=== PATIENT | male | born 1950 | race Caucasian/White ===

== ENCOUNTER → 2025-06-13 08:12 | Outpatient (BNVA) | payer MEDICARE, SELFPAY | PROVIDERS: PCP Nurse Practitioner Family; Referring Provider Nurse Practitioner Family; Visit Provider Physical Therapy Assistant | DX: Z12.11 Encounter for screening for malignant neoplasm of colon (principal); I10 Essential (primary) hypertension | CPT/HCPCS: S0285 ==

== ENCOUNTER 2025-06-21 03:45 | Outpatient (CLI) | payer MEDICARE, SELFPAY ==
--- NOTE | 2025-06-21 05:30 | DI.US_ITS ---
APPROVED REPORT EXAM: Comprehensive 2D, Doppler, and color-flow Echocardiogram Patient Location: Out-Patient Material Handling Crew Supervisor: Lisa Alvares RDCS (AE) Indications: H/O Aortic stenosis Other Information Study Quality: Adequate. Technically limited study due to body habitus limited view of subcoastal . Conclusion Normal left ventricular wall thickness and chamber size. Ejection fraction is 60%. Wall motion is normal Normal right ventricular size and function Both atria are normal in size. The atrial septum is thin and hypermobile Aortic valve is calcified. There is moderate aortic stenosis. Peak gradient is 44, mean 27 mmHg. Calculated aortic valve area is 1 to 1.2 cm??. Trace aortic regurgitation Mildly dilated ascending aorta 3.5 cm Wall motion Left Ventricle The left ventricle is normal size. The left ventricular systolic function is normal. The left ventricular ejection fraction is within the normal range. There is normal left ventricular wall thickness. There is normal LV segmental wall motion. There is no ventricular septal defect visualized. LVEF is 60%. Right Ventricle The right ventricle is normal size. The right ventricular systolic function is normal. Atria The left atrium size is normal. The right atrium size is normal. Atrial septal aneurysm is present. Aortic Valve Aortic valve is calcified. Number of aortic valve leaflets could not be assessed. Moderate aortic stenosis. Highest mean aortic valve gradient is 27.07mmHg. Peak aortic valve gradient is 44.04mmHg. Calculated GRABIEL by the continuity equation is 1.0cm2. Trace aortic regurgitation. Mitral Valve Mild mitral annular calcification. No evidence of mitral valve stenosis. Trace mitral regurgitation. Tricuspid Valve The tricuspid valve is normal in structure. There is no tricuspid valve stenosis. Trace to mild tricuspid regurgitation. Pulmonic Valve The pulmonary valve is normal in structure. There is no pulmonic valvular stenosis. There is no pulmonic valvular regurgitation. Great Vessels The aortic root is normal in size. The ascending aorta is mildly dilated. Aortic arch is normal in caliber. The IVC was not visualized. Technically limited subcostal imaging. Pericardium Technically limited subcostal imaging. 2D Dimensions IVSD d PLAX 1.20 cm M: 0.6-1.2 Ao Root d 2.91 cm M: 3.1 - 3.7 LVPW d PLAX 1.20 cm M: 0.6 - 1.2 Ao Asc Diam d 3.50 cm M: 2.6 - 3.4 LVID d PLAX 4.73 cm M: 4.2 - 5.8 LVDs 3.20 cm M: 2.5 - 4.0 LV EF Teichholz 60.7 % FS 32.41 % LV EDV (Teich) 104.0 mL LV ESV (Teich) 40.9 mL M-Mode TAPSE 2.90 cm (M/F) >1.7 Auto EF LV EDV A4C 128.3 mL LV EDV A2C 153.4 mL LV EDV BP 139.7 mL LV ESV A4C 52.6 mL LV ESV A2C 59.6 mL LV ESV BP 56.3 mL LVEF(%) A4C 59.0 % LVEF(%) A2C 61.1 % LVEF(%) BP 59.7 % LV SV A4C 75.6 ml LV SV A2C 93.8 ml LV SV BP 83.5 ml LV CO A4C 4.4 L/min LV CO A2C 5.4 L/min LV CO BP 4.9 L/min HR A4C 57.88 BPM HR A2C 57.15 BPM LV EDV Index (BP) LA Volume LA Length A4C 5.3 cm LA Length A2C 5.3 cm LA Area A4C s 19.87 cm2 LA Area A2C s 19.62 cm2 LA Vol A4C A-L 62.76 mL LA Vol A2C A-L 61.59 mL LA Vol Biplane A-L 62.4 mL LA Vol/BSA A4C A-L LA Vol/BSA A2C A-L LA Vol/BSA BP A-L 28.9 mL/m2 LA Vol A4C MOD 59.3 mL LA Vol A2C MOD 55.9 mL LA Vol BP MOD 57.6 mL RA Volume RA Area A4C 12.8 cm2 RA ESV A4C (A-L) 27.2mL RA Vol/BSA A4C A-L RA Length A4C 5.1 cm RA ESV A4C (MOD) 25.2mL LV Diastology MV E' medial 0.067 (>0.07 m/s) MV E Vmax 0.96 (0.4-1.3 m/s) MV E/E' MED 14.41 (<14) MV A Vmax 0.80 (0.4-1.3 m/s) MV E' lateral 0.077 (>0.1 m/s) E/A Ratio 1.2 MV E/E' LAT 12.57 (<14) MV E' Average 0.072 m/s MV E/E'(average) 13.43 Aortic Valve AoV Vmax 3.32 m/s LVOT Vmax 0.89 m/s AoV Peak Grad 44.0 mmHg LVOT Peak Grad 3.2 mmHg AoV Area (Vmax) 1.04 cm2 LVOT VTI 0.255 m AoV VTI 0.859 m LVOT Mean Grad 2.0 mmHg AoV Mean Gabino. 2.48 m/s LVOT SV 98.79 mL AoV Mean Grad 27.1 mmHg LVOT Diam s 2.20 cm AoV Area (VTI) 1.15 cm2 AV Regurg Peak Gr. 44.04 mmHg Velocity Ratio 0.27 Mitral Valve MV DT 149 (160-240 msec) MV Vmax TIPS 0.86 m/s MV Mean Grad 1.2 (<2mmHg) MV VTI 0.249 m Pulmonary Valve PV Vmax 1.00 (0.5-1.5 m/s) RVOT Vmax 0.74 m/s PV Peak Grad 4.0 mmHg RVOT Peak Gr. 2.2 mmHg PV Mean Gabino 0.70 m/s RVOT VTI 0.196 m PV Mean Grad 2.2 mmHg RVOT Mean Gr. 1.4 mmHg Tricuspid Valve TV S' 0.17 m/s TR Vmax 2.60 m/s TR Peak Grad 27.1 mmHg
== END 2025-06-21 04:05 ==
LOC: DI 03:45
PROVIDERS: PCP Nurse Practitioner Family; Visit Provider Internal Medicine Cardiovascular Disease
DX: I35.0 Nonrheumatic aortic (valve) stenosis (principal); Z12.11 Encounter for screening for malignant neoplasm of colon
CPT/HCPCS: 93306

== ENCOUNTER 2025-06-28 09:07 | Day surgery (SDC) | payer MEDICARE, SELFPAY ==
--- NOTE | 2025-06-27 18:26 | W.PM.DSUDISC ---
Date of service: 06/28/25 Discharge Plan Disposition Patient Disposition: Home Condition: Good Discharge Details Reason For Visit: screening colonoscopy Attending Provider: Diego Marin Primary Care Provider: Stewart Jaramillo Home Meds and New Rx's Prescriptions: Continued azathioprine [Imuran] 50 MG tablet 150 mg PO DAILY calcium carbonate-vitamin D3 1 EACH tablet 1 ea PO BID sulfamethoxazole-trimethoprim [Bactrim DS] 1 EACH tablet 1 ea PO 3x/wk Rx Instructions: Take M,W,F simvastatin 40 MG tablet 40 mg PO DAILY niacinamide 500 mg capsule 500 mg PO BID multivitamin Tablet 1 tab PO DAILY Discontinued bisacodyl [Dulcolax (bisacodyl)] 5 mg tablet,delayed release (DR/EC) 5 mg PO ONCE Qty: 4 0RF Rx Instructions: Take per colonoscopy instructions provided by ordering providers office polyethylene glycol 3350 17 gram/dose powder 17 g PO ONCE Qty: 238 0RF Rx Instructions: Take per colonoscopy instructions provided by ordering providers office Discharge Instructions Additional Instructions: Abe, it was nice to meet you today, and I hope you feel well after the procedure. Things went smoothly. I did find, and removed, total of 5 polyps today. These are all small, none of them have any features that are particularly worrisome to the naked eye. I will send all of these to the pathologist today for them to review. Colon polyps, different varieties, and we use the information from the polyp analysis to help guide the timing of future colonoscopies. The results from the pathologist will take a week or 2 for me to get back, but my office will be in touch once we have all that information. If you need anything at all in the meantime, please do not hesitate to ask at any point. Surgery: 1. If tolerated, consume a soft, low fiber diet for 1-2 days. 2[address] Do not drive, drink alcohol, operate machinery, make critical decisions, or do activities that require coordination or balance for 24 hours. 3. Because air was put into your colon during the procedure, expelling air from your rectum (passing gas or farting) is normal. 4. You may not have a bowel movement for 1-3 days because of the colonoscopy prep. This is normal. 5. Go directly to the emergency room if you notice any of the following: Develop chills (warm to touch), or if you have a thermometer and your temperature is above 101 Difficulty breathing or difficultly swallowing Persistent vomiting Severe abdominal pain, other than gas cramps Severe chest pain Black, tarry stools Any bleeding ? exceeding one tablespoon 6. Call your physician if the site where your intravenous was started becomes red, swollen, painful, and warm to touch. 7. Your physician has reviewed your pre-procedure medications. Please continue to take those medications as previously ordered. You will be given specific information/education regarding any changes to your medications before leaving. Anesthesia: Please call your primary care provider to arrange visit with cardiology to discuss your moderate/severe aortic valve stenosis and make sure your medical management has been optimized. Stand Alone Forms: Anesthesia Discharge Inst., Romel Burciaga ([facility]) Referrals: Dewayne Jaramillo [ NON-[facility] STAFF PHYSICIAN, Medicine] Referral Note: We repeated Aj's echocardiogram and planning for his colonoscopy. We have some concerns regarding progression of his aortic stenosis. The official report describes moderate stenosis, but by some measurements, this could be considered severe Activity:: Activity as Tolerated Diet:: As Tolerated Discharge Orders Discharge Orders: Discharge Order (Routine); Ordered 06/27/25 Ordered By: Diego Marin DS: Diagnosis Discharge Diagnosis (1) Colon cancer screening: Status: Acute Asessment and Plan: Follow-up on polypectomy results
--- NOTE | 2025-06-27 18:27 | W.COLOREPORT ---
Date of service: 06/28/25 Time of Service: 11:12 Colonoscopy Report Date of procedure: 06/28/25 Pre-op diagnosis general: screening colonoscopy Post-op diagnosis procedure note: other (Colon polyps; internal hemorrhoids) Procedure: colonoscopy with polypectomy Surgeon: Diego Marin Anesthesia Type: General:No Airway Estimated blood loss (mL): 10 Pathology: other (0.25 cm flat rectal polyps x 2 (single specimen) 0.25 cm flat polyp at 40 cm, 0.5 cm flat polyp at 35 cm, 0.25 cm flat polyp at 15 cm) Complications: None Disposition: same day Indications: Aj is a 75 year old man who needs his next screening colonoscopy Prep: Miralax/Dulcolax Procedure Start Time: 10:30 Procedure End Time: 10:54 Retraction Time: 17 Findings: Grade 1 internal hemorrhoids; 0.25 cm flat rectal polyps x 2 (single specimen) 0.25 cm flat polyp at 40 cm, 0.5 cm flat polyp at 35 cm, 0.25 cm flat polyp at 15 cm Procedure Description: After the induction of anesthesia, and with the patient in left lateral decubitus position, I began by performing an external anorectal exam.? Perineum and skin were normal, as was the anal verge.? There was no evidence of external hemorrhoids.? Next, I performed a digital rectal exam.? I did not appreciate any abnormal findings.? Next, I advanced a colonoscope into the rectal vault.? I performed retroflexion.? There are internal hemorrhoids.? In the bottom portion of the rectal vault large to 0.25 cm flat polyps. These were removed with cold forceps with minimal bleeding and sent as a single specimen. Using irrigation, I then advanced the colonoscope beyond the rectal folds and into the sigmoid colon before advancing towards the cecum.? The scope was noted to be in the cecum by identification of the ileocecal valve and appendiceal orifice.? I then began withdrawing the colonoscope using repeated irrigation as necessary for full evaluation of the colonic mucosa. Around 40 cm from the anal verge was another polyp. This was also flat. This was about 0.25 cm. I removed this with cold forceps. Similarly, another 0.5 cm flat polyp was detected at 35 cm. This was completely excised in piecemeal with cold forceps with minimal bleeding. ?Once the scope was withdrawn to the level of the rectum, great care was taken to examine portions of the rectal folds.? Another 0.25 cm flat polyp was found at 15 cm past the anal verge. This was removed with cold forceps similar to all the others. There was no significant bleeding from the sites. Finally, the scope was withdrawn and the patient was brought to the same-day surgery recovery unit as the anesthetic wore off. ?The findings and instructions were shared with the patient prior to discharge. Hardaway Bowel Prep Hardaway Bowel Prep Right Colon: 3 Left Colon: 3 Transverse Colon: 3 Total Score: 9
[2025-06-28 09:19] VITALS: BP 152/87; PULSE 87; RESP 14; TEMP 36.2; O2SAT 99
[2025-06-28] MEDS: Lactated Ringers 1,000 ML 80 ML IV (09:36)
--- NOTE | 2025-06-28 09:42 | W.ANESPRE ---
General Info Date of Service Date Performed: 06/28/25 Height: 6 ft Weight: 93.8 kg Body Mass Index (BMI): 28.0 Surgical Procedure: Operation Date: 06/28/25 10:35 Proposed Procedure Side Surgeon p Colonoscopy Diego Marin MD Meds Allergies and Home Medications Allergies Allergy/AdvReac Type Severity Reaction Status Date / Time No Known Allergies Allergy Unverified 06/28/25 09:15 Home Medication ?Medication ?Instructions ?Recorded azathioprine 50 mg tablet (Imuran) 150 mg PO DAILY 03/10/15 calcium 600 mg (as 1 ea PO BID 03/10/15 carbonate)-vitamin D3 5 mcg (200 unit) tablet simvastatin 40 mg tablet 40 mg PO DAILY 03/10/15 sulfamethoxazole 800 1 ea PO 3x/wk 03/10/15 mg-trimethoprim 160 mg tablet (Bactrim DS) multivitamin 1 tab PO DAILY 02/27/25 niacinamide 500 mg capsule 500 mg PO BID 02/27/25 Current Visit Medications: Current Medications Generic Name Dose Route Start Last Admin Trade Name Gualbertoq PRN Reason Stop Dose Admin Ringer's Solution 1,000 mls @ 80 mls/hr 06/28/25 06:00 06/28/25 09:36 IV 06/28/25 23:59 80 mls/hr INFUSION LIZBETH Administration IV Miscellaneous Supplies 1 each 06/28/25 06:00 Iv Access IV 06/28/25 23:59 DIRECTED LIZBETH Sodium Chloride 0 ml 06/28/25 06:00 Normal Saline Flush 10 Ml Syr IV 06/28/25 23:59 PRN PRN Sodium Chloride 0 ml 06/28/25 06:00 Normal Saline 10 Ml Vial IJ 06/28/25 23:59 DIRECTED PRN Sterile Water 0 ml 06/28/25 06:00 Water,Injection,Sterile 10 Ml Vial IJ 06/28/25 23:59 DIRECTED PRN PFSH Active Problems Active Problems: Problem Status Onset Code Essential hypertension Acute I10 Hyperlipidemia Acute E78.5 Colon cancer screening Acute Z12.11 Medical History Medical History Heart murmur Basal cell carcinoma of skin Granulomatosis with polyangiitis Aortic valvular stenosis Surgical History Surgical History H/O colonoscopy S/P total left hip arthroplasty History of lung surgery Tobacco Smoking/Tobacco Use Status: Never Alcohol Alcohol Intake: current Alcohol intake frequency: a few times a week Alcohol type: beer Substance Use Substance use: Never Substance use type: does not use Vital Signs and Lab Results Vital Signs Most Recent Vital Signs in EMR: Most Recent Vital Signs Temp Pulse Resp BP Pulse Ox 36.2 C L 87 14 152/87 H 99 06/28/25 09:19 06/28/25 09:19 06/28/25 09:19 06/28/25 09:19 06/28/25 09:19 Imaging and Studies Imaging and Studies Study information below may be from another EMR and interpreted by another provider. Please see original notes in EMR for more complete details. Echocardiogram Summary: 06/20:Conclusion Normal left ventricular wall thickness and chamber size. Ejection fraction is 60%. Wall motion is normal Normal right ventricular size and function Both atria are normal in size. The atrial septum is thin and hypermobile Aortic valve is calcified. There is moderate aortic stenosis. Peak gradient is 44, mean 27 mmHg. Calculated aortic valve area is 1 to 1.2 cm??. Trace aortic regurgitation Mildly dilated ascending aorta 3.5 cm Anesthesia Assessment and Plan Anesthesia History Personal History: No History of Anesthesia Complications Family History: No Family History of Anesthesia Complications Exercise Tolerance Exercise Tolerance: Metabolic Equivalents>4 Pertinent Negatives Pertinent Negatives: No Symptoms of GERD Cardiac & Pulmonary Exam Cardiac Exam: Normal S1/S2 Heart Sounds and Heart Murmur Present Pulmonary Exam: Clear Bilateral Breath Sounds Implantable Cardiac Device Does patient have a Pacemaker or an ICD?: No Airway Exam Known Difficult Airway: No Mallampati Class: 2 Mouth Opening: Normal (> 3cm) Thyromental Distance: Less than 3 cm Neck Range of Motion: Full ROM Neck Circumference: Normal Teeth Condition: Normal Dentition ASA Classification ASA Score: ASA 4 Emergency Case?: No NPO Status NPO Status: NPO Clears >2 hours, Solids >8 hours Anesthesia Plan Resuscitation Status: Full Code Anesthesia Technique: General Anesthesia Airway Planned: Natural Airway Monitors Used: Standard Monitors
[2025-06-28 09:46] VITALS: BMI 28.0
--- NOTE | 2025-06-28 10:32 | BOWEL_PTH ---
PATIENT: Aj Metcalf LOC: [facility] U#:[id number] AGE/SX: 75/M ROOM: RE06/28/[address]: Diego Marin MD : 1950 BED: DIS: 06/28/2025 SPEC #: [id number] RECD: 06/28/25 12:39 STATUS: CARSON REQ #: [id number] ZEN: 06/28/25 10:[address]: Diego Marin DEPT: Surgical Specimen RECD BY: Elva Jeffery ENTERED: 06/28/25 12:41 SP TYPE: Bowel OTHR DR: Stewart Jaramillo Tissues: 1 - BIOPSY BOWEL 2 - BIOPSY BOWEL 3 - BIOPSY BOWEL 4 - BIOPSY BOWEL Procedures: GROSS AND MICRO LEVEL 4 Comments: [id number]
[2025-06-28 10:55] VITALS: BP 122/68; PULSE 64; RESP 18; TEMP 36.3; O2SAT 98
[2025-06-28 11:25] VITALS: BP 137/77; PULSE 80; RESP 18; TEMP 36.6; O2SAT 97
--- NOTE | 2025-06-28 12:03 | ANES.POST_ITS ---
Postoperative Evaluation Date, Time and Location Date Performed: 06/28/25 Time Performed: 11:55 Patient Location: Day Surgery Unit Vital Signs Most Recent Imported Vital Signs: Most Recent Vital Signs Temp Pulse Resp BP Pulse Ox 36.6 C 80 18 137/77 97 06/28/25 11:25 06/28/25 11:25 06/28/25 11:25 06/28/25 11:06/28/25 11:25 Pain Score Most Recent Pain Score: Most Recent Pain Score Pain Level 0 06/28/25 11:25 Assessment Mental Status: Awake (Alert & Oriented to Patient Baseline) Airway and Respiratory Function: Patent airway with normal (patient baseline) respiratory exam Cardiovascular Function: Hemodynamically Stable Hydration Status: Adequately Hydrated Nausea & Vomiting: No Nausea or Vomiting Pain: Pt. Denies Any Pain Peripheral Nerve Block: Patient did not receive a nerve block Teaching Patient Teaching: Advised to seek followup for the following concerns (See ex planation) (Cardiology to discuss moderate or more likely severe aortic stenosis.) Concerns: Cardiac Optimization
== END 2025-06-28 11:47 | disposition home or self-care (01) ==
LOC: SUR 09:08
PROVIDERS: PCP Internal Medicine Gastroenterology; Visit Provider Surgery
PROC: 0DJD8ZZ Inspection of Lower Intestinal Tract, Via Natural or Artificial Opening Endoscopic (ICD-10-PCS; CPT 45378; principal; 2025-06-28 10:30)
DX: Z12.11 Encounter for screening for malignant neoplasm of colon (principal); I10 Essential (primary) hypertension; D12.7 Benign neoplasm of rectosigmoid junction; D12.5 Benign neoplasm of sigmoid colon; K62.1 Rectal polyp; K64.8 Other hemorrhoids
CPT/HCPCS: 45380; 88305; J2003; J2371; J2704